=== PATIENT | female | born 1950 | race Caucasian/White ===

== ENCOUNTER → 2018-02-24 | Outpatient (CLI) | payer MEDICARE, OTHER ==
[~2018-02-24] MED LIST: 5-HTP PO; 5-HY100C PO; 5-HY50CA3 PO; ALB0.5 INH; ALBU8.5H IH; ALBU8.5H12 IH; ARGI500C5 PO; ARGI500C9 PO; ASCO-440 PO; ASPI-715 PO; AZEL50GE4; AZEL50GE4 TP; B12 SHOT; BIOT10TA3 PO; BIOT1TAB12 PO; BIOT5CAP9 PO; BIOT5TAB2 PO; BUDE10.2 IH; BUDE10.2 INH; CELE-1 PO; CEPH-13 PO; CEPH500C24 PO; CHOL10005 PO; CHOL100094 PO; CHOL200022 PO; CICL15CR TP; CLIN300C99 PO; CRAN1CAP13 PO; CRAN250T PO; CRAN500C11 PO; CYA1000 PO; CYAN1000 ID; CYAN1000 IJ; CYAN1000 IM; CYAN100T25 PO; CYCL1DRO6 OP; DOC100 PO; DOC240 PO; DOXY-179 PO; DUL100/5PT IH; DULERAPT INH; ENO40I SQ; ENOX120D5 SQ; ENOX40DI8 SQ; EST42T PV; ESTR1VAG6 VG; ESTRING EC; ESZO3TAB37 PO; FERR142T2 PO; FERR27TA3 PO; FLU150 PO; FLUO30CR; FLUO30CR TP; FLUT16SP19 NS; FOR12R INH; FURO-43 PO; FURO-45 PO; GARL10005 PO; GINK120C PO; GLUC1TAB21 PO; HYDR-385 PO; HYDR12.561 PO; HYOS-24 SL; HYOS0.1225 PO; IBU600 PO; IMMU10VI SC; IRON-10 PO; IRON45TA5 PO; L GA1CAP PO; LANS15CA38 PO; LANS15CA54 PO; LEV500 PO; LEVO750T44 PO; LOPE-147 PO; LOPE2CAP15 PO; LOR5/325 PO; LORA-802 PO; LORA10CA3 PO; LYSI500C3 PO; LYSI500T34 PO; MAGN250T29 PO; MAGN250T34 PO; METH1500 PO; METR45CR10; METR45CR10 TP; MINO60SO50 TP; MOM110R IH; MON10 PO; MONT10TA PO; MONT10TA22 PO; OMEG-11 PO; ONDA-2 PO; ONDA4TAB PO; PANT40TA65 PO; PER PO; PHILLIPS COLON HEALTH; POT25TAB11 PO; POTA10CA40 PO; POTA20PA25 PO; POTA99TA13 PO; PRE1 PO; PRE10 PO; PRE5 PO; ROSU5TAB8 PO; S-AD400T5 PO; S-AD400T7 PO; SERT-1 PO; SIMV-42 PO; SIMV-49 PO; SLOW FE PO; SUCR1TAB85 PO; TERB250T64 PO; TIO18R IH; TIO18R INH; TRA50 PO; TRAM-420 PO; TRAM100T22 PO; TRET20CR34; TRIA15CR40 TP; UBID100C48 PO; VITA400T7 PO; WAR5 PO; WARF1TAB56 PO; ZOL5 PO; ZOLP-360 PO; [UNRECOGNIZED DRUG - CODE]; [UNRECOGNIZED DRUG - CODE]; [UNRECOGNIZED DRUG - CODE] PO; [UNRECOGNIZED DRUG - CODE] PO; [UNRECOGNIZED DRUG - CODE] PO; [UNRECOGNIZED DRUG - CODE] PO; [UNRECOGNIZED DRUG - CODE] TP; [UNRECOGNIZED DRUG - CODE] TP; [UNRECOGNIZED DRUG - CODE] TP; [UNRECOGNIZED DRUG - CODE] TP; [UNRECOGNIZED DRUG - OTHER]; [UNRECOGNIZED DRUG - OTHER]; [UNRECOGNIZED DRUG - OTHER]; [UNRECOGNIZED DRUG - OTHER]
== END ==
LOC: LAB 13:30
PROVIDERS: ATTEND Internal Medicine
DX: R94.6 Abnormal results of thyroid function studies (principal)
CPT/HCPCS: 36415; 84443

== ENCOUNTER → 2018-06-25 | Outpatient (CLI) | payer MEDICARE, OTHER ==
[~2018-06-25] MED LIST changes: +CETI-176 PO; +CINN500C12 PO; +LACT1CAP6 PO; +MULT1TAB64 PO; +[UNRECOGNIZED DRUG - CODE] TP
[2018-06-25 11:21] LABS: LDL CHOLESTEROL 68 mg/dl
== END ==
LOC: LAB 10:32
PROVIDERS: ATTEND Internal Medicine
DX: I10 Essential (primary) hypertension (principal); E78.2 Mixed hyperlipidemia; R73.09 Other abnormal glucose
CPT/HCPCS: 36415; 82040; 82247; 82310; 82374; 82435; 82465; 82565; 82947; 83036; 83718; 84075; 84132; 84155; 84295; 84450; 84460; 84478; 84520

== ENCOUNTER → 2018-07-17 | Outpatient (CLI) | payer MEDICARE, OTHER ==
[2018-07-17 15:56] LABS: PLATELET COUNT, AUTOMATED 255 K/uL (150-450)
== END ==
LOC: LAB 15:32
PROVIDERS: ATTEND Internal Medicine Allergy & Immunology
DX: D83.8 Other common variable immunodeficiencies (principal); J45.40 Moderate persistent asthma, uncomplicated
CPT/HCPCS: 36415; 82040; 82247; 82310; 82374; 82435; 82565; 82784; 82947; 84075; 84132; 84155; 84295; 84450; 84460; 84520; 85025

== ENCOUNTER → 2018-07-21 | Outpatient (CLI) | payer MEDICARE, OTHER ==
[2018-07-21 10:54] LABS: PLATELET COUNT, AUTOMATED 242 K/uL (150-450)
== END ==
LOC: LAB 10:07
PROVIDERS: ATTEND Internal Medicine Nephrology
DX: I12.9 Hypertensive chronic kidney disease with stage 1 through stage 4 chronic kidney disease, or unspecified chronic kidney disease (principal); N18.2 Chronic kidney disease, stage 2 (mild); R82.79 Other abnormal findings on microbiological examination of urine
CPT/HCPCS: 36415; 81001; 82040; 82247; 82310; 82374; 82435; 82565; 82570; 82947; 84075; 84132; 84155; 84156; 84295; 84450; 84460; 84520; 85025; 87088

== ENCOUNTER → 2018-09-07 | Outpatient (CLI) | payer MEDICARE, OTHER ==
[~2018-09-07] MED LIST changes: +CHOL200018 PO; -CHOL200022 PO
--- NOTE | 2018-09-07 14:06 | RADIOLOGY IMAGING REPORT ---
[facility] PATIENT NAME: Malgorzata Vasquez : 1950 MR: [id number] V: [id number] EXAM DATE: ORDERING PHYSICIAN: DIONNE LAWRENCE TECHNOLOGIST: Location: [facility] [place] Patient: Malgorzata Vasquez : 1950 Visit/Account:[id number] Date of Sevice: 09/07/2018 CHEST W/O CONTRAST History: Immunodeficiency TECHNIQUE: Contiguous axial images were performed through the chest to the level of the adrenal gla nds. No IV contrast was administered. Coronal and sagittal reformatting was also performed. Dose Lowe ring Technique One of the following dose optimization techniques was utilized in the performance of this exam: Autom ated exposure control; adjustment of the mA and/or kV according to the patient's size; or use of an i terative reconstruction technique. Specific details can be referenced in the facility's radiology C T exam operational policy. COMPARISON STUDIES: CTA of the chest April 14, 2009 . Lungs / Pleura: There is a 4 mm noncalcified nodule in the right upper lobe best seen on image 72 o f series 4. Not present previously There is a 3 mm noncalcified nodule anterior lateral aspect right upper lobe best seen on image 118. Not present previously There is a 3 mm noncalcified nodule anterior right middle lobe best seen on image 179. Not present p reviously There is a 4 mm nodule anterior aspect the right middle lobe best seen on image 189. This was presen t previously. . There is a 2 mm nodule lateral aspect right middle lobe best seen on image 193. Not present previ ously There is a 2 mm nodule posterior lateral right lower lobe best seen on image 218. Not seen previousl y 2 mm nodule lateral aspect right lower lobe best seen on image 224. Not seen previously 6 mm noncalcified nodule posterior aspect right lower lobe best seen on image 229 not seen previously A 4 mm nodule posterior lateral aspect of the right lower lobe best seen on image 235 was present pre viously 3 mm nodule posterior aspect of the left lower lobe best seen on image 247. Not seen previously 3 mm nodule lateral aspect left lower lobe best seen on image 2:30 not seen previously 2 mm nodule posterior aspect right lower lobe best seen on image 141 not seen previously 3 mm nodule left upper lobe best seen on image 1:15 not seen previously 2 mm nodule left upper lobe best seen on image 101 not seen previously Mediastinum/nodes: negative. Heart and vessels: Moderate coronary artery calcifications Musculoskeletal / Body wall: Spondylotic changes of the thoracic spine Upper abdomen: Small hiatal hernia IMPRESSION: Numerous pulmonary nodules seen throughout the lungs measuring up to 6 mm. Most of these nodules wer e not appreciated on a prior CT from April 14, 2009 For multiple nodules measuring less than 6 mm, in a low risk patient (minimal or absent smoking history, no history of malignancy), no routine followup is recommended. In a high risk patient (smoking or malignancy history), optional 12 month followup c an be obtained. Small hiatal hernia Moderate coronary artery calcifications Report Dictated By: Laureen Hoffman MD at 09/07/2018 1:45 PM Report E-Signed By: Laureen Hoffman MD at 09/07/2018 2:02 PM WSN:[email or web address]
--- NOTE | 2018-09-07 14:21 | RADIOLOGY IMAGING REPORT ---
FACILITY: [facility] PATIENT NAME: Malgorzata Vasquez : 1950 MR: [id number] V: [id number] EXAM DATE: ORDERING PHYSICIAN: DIONNE LAWRENCE TECHNOLOGIST: Location: [facility] [place] Patient: Malgorzata Vasquez : 1950 Visit/Account:[id number] Date of Sevice: 09/07/2018 CT ABDOMEN WITHOUT CONTRAST CLINICAL INFORMATION: History of immunodeficiency TECHNIQUE: Axial CT images were obtained through the abdomen without administration of IV contrast. Reformatted coronal and sagittal images were also obtained. Dose Lowering Technique One of the following dose optimization techniques was utilized in the performance of this exam: Autom ated exposure control; adjustment of the mA and/or kV according to the patient's size; or use of an i terative reconstruction technique. Specific details can be referenced in the facility's radiology C T exam operational policy. COMPARISON: CT abdomen and pelvis January 25, 2011 FINDINGS: Lower lung [place]: There are bilateral pulmonary nodules which are discussed on today's CT of the [facility] rax dictation Evaluation of the solid organs of the abdomen is limited without IV contrast. Liver: No focal parenchymal abnormality of the liver. Biliary: Post surgical changes from a cholecystectomy Pancreas: Normal appearance. Spleen: There Is a small capsular calcification in the spleen unchanged when compared the prior study Adrenal glands: Unremarkable. Kidneys / retroperitoneum: No evidence of nephrolithiasis or hydronephrosis Bowel / peritoneum / mesenteries: Small hiatal hernia. There is a diverticulum projecting from the second portion of the duodenum Lymph node assessment: No pathologic adenopathy identified. Vessels: Mild atherosclerotic calcifications of the abdominal aorta atherosclerotic calcification see n throughout a nonaneurysmal abdominal aorta and branches. Musculoskeletal / Body wall: There is a levoconvex scoliosis of the number spine with associated spon dylotic changes. Also noted are postsurgical changes from posterior lumbar interbody fusion at L4-5 IMPRESSION: 1. There are bilateral pulmonary nodules which are discussed on today's CT of the thorax dictation Post surgical changes from a cholecystectomy Small capsular calcifications in the spleen appears unchanged Small hiatal hernia Additional chronic findings as described Report Dictated By: Laureen Hoffman MD at 09/07/2018 2:12 PM Report E-Signed By: Laureen Hoffman MD at 09/07/2018 2:17 PM WSN:[email or web address]
== END ==
LOC: CT 00:24
PROVIDERS: ATTEND Internal Medicine Allergy & Immunology
DX: I25.10 Atherosclerotic heart disease of native coronary artery without angina pectoris (principal); R91.8 Other nonspecific abnormal finding of lung field; K44.9 Diaphragmatic hernia without obstruction or gangrene; Z90.49 Acquired absence of other specified parts of digestive tract
CPT/HCPCS: 71250; 74150

== ENCOUNTER → 2018-09-29 | Outpatient (CLI) | payer MEDICARE, OTHER ==
[~2018-09-29] MED LIST changes: +BENZ200C15 PO
[2018-09-29 15:41] LABS: PLATELET COUNT, AUTOMATED 291 K/uL (150-450)
--- NOTE | 2018-09-29 16:11 | EKG ---
FACILITY: [facility] PATIENT NAME: JAMES JONES : [id number] MR: [id number] V: [id number] EXAM DATE: ORDERING PHYSICIAN: MITCH LEONARD TECHNOLOGIST: JUSTIN Test Reason : PREOP-THUMB Blood Pressure : / mmHG Vent. Rate : 094 BPM Atrial Rate : 094 BPM P-R Int : 180 ms QRS Dur : 076 ms QT Int : 358 ms P-R-T Axes : 052 017 106 degrees QTc Int : 447 ms Normal sinus rhythm T wave abnormality, consider anterolateral ischemia Abnormal ECG When compared with ECG of 27-FEB-2014 22:07, T wave inversion now evident in Anterolateral leads Confirmed by Shakir Swift ([id number]) on 09/29/2018 8:00:20 PM Referred By: ZOIE Confirmed By:Shakir Jones
== END ==
LOC: LAB 15:28
PROVIDERS: ATTEND Anesthesiology
DX: Z01.812 Encounter for preprocedural laboratory examination (principal); Z01.810 Encounter for preprocedural cardiovascular examination; M18.12 Unilateral primary osteoarthritis of first carpometacarpal joint, left hand; R94.31 Abnormal electrocardiogram [ECG] [EKG]
CPT/HCPCS: 36415; 82040; 82247; 82310; 82374; 82435; 82565; 82947; 84075; 84132; 84155; 84295; 84450; 84460; 84520; 85025; 93005

== ENCOUNTER → 2019-02-04 | Outpatient (CLI) | payer MEDICARE, OTHER ==
[~2019-02-04] MED LIST changes: +[UNRECOGNIZED DRUG - CODE] PO; -[UNRECOGNIZED DRUG - CODE] PO
[2019-02-04 13:17] LABS: PLATELET COUNT, AUTOMATED 259 K/uL (150-450)
== END ==
LOC: LAB 12:56
PROVIDERS: ATTEND Internal Medicine Allergy & Immunology
DX: D83.9 Common variable immunodeficiency, unspecified (principal)
CPT/HCPCS: 36415; 82040; 82247; 82310; 82374; 82435; 82565; 82784; 82947; 84075; 84132; 84155; 84295; 84450; 84460; 84520; 85025

== ENCOUNTER → 2019-06-24 | Outpatient (CLI) | payer MEDICARE, OTHER ==
[~2019-06-24] MED LIST changes: +B CO1CAP5 PO; +CA C1TAB9 PO; +CETI-169 PO; +CIT500PT PO; +CRAN1CAP14 PO; -CYAN100T25 PO; +CYAN100T26 PO; +KRIL1CAP19 PO; +LOPE-111 PO; +LOPE1TAB55 PO; +LUTE6CAP11 PO; +LYSI500T32 PO; +OMEP-126 PO; +SOMNAPURE PO
[2019-06-24 13:49] LABS: PLATELET COUNT, AUTOMATED 226 K/uL (150-450)
== END ==
LOC: LAB 13:22
PROVIDERS: ATTEND Internal Medicine Allergy & Immunology
DX: D80.1 Nonfamilial hypogammaglobulinemia (principal); D83.8 Other common variable immunodeficiencies
CPT/HCPCS: 36415; 82040; 82247; 82310; 82374; 82435; 82565; 82784; 82947; 84075; 84132; 84155; 84295; 84450; 84460; 84520; 85007; 85027

== ENCOUNTER → 2019-06-24 | Outpatient (CLI) | payer MEDICARE, OTHER | LOC: LAB 13:24 | PROVIDERS: ATTEND Family Medicine | DX: E03.9 Hypothyroidism, unspecified (principal) | CPT/HCPCS: 84443 ==

== ENCOUNTER → 2019-06-30 | Outpatient (CLI) | payer MEDICARE, OTHER ==
--- NOTE | 2019-06-30 18:39 | RT STRESS TEST REPORT ---
FACILITY: [facility] PATIENT NAME: JAMES JONES : [id number] MR: [id number] V: [id number] EXAM DATE: ORDERING PHYSICIAN: AXEL ABDALLA TECHNOLOGIST: Brady Acquisition Time: 2019-06-30 14:13:33 Total Exercise Time: 00:05:30 Test Indications: Syncope Medications: Laxis Protocol: [id number] Max HR: 155 BPM 100% of Pred: 154 BPM Max BP: 173/068 mmHG Max Work Load: 7.0 METS Confirmed by MITCH ANTONY ([id number]) on 06/30/2019 6:35:37 PM Referred By: Overread By: MITCH ANTONY
== END ==
LOC: RESP 01:12
PROVIDERS: ATTEND Family Medicine
DX: R07.89 Other chest pain (principal)
CPT/HCPCS: 93017